=== PATIENT | female | born 1980 | race Caucasian/White ===

== ENCOUNTER 2019-05-02 18:10 | Emergency (ER) | payer SELFPAY ==
[~2019-05-02] VITALS: Ht 165.1 cm; Wt 56.7 kg
[2019-05-02] MEDS ORDERED: IV LR 1000 ML 1,000 ML IV ONE (18:30)
[2019-05-02] MEDS ORDERED: MVI-12 10ML IV ONE ×2 (18:30→18:34)
[2019-05-02] MEDS ORDERED: Thiamine 100 MG in IV D5W 50 ML IV SCH (18:30)
[2019-05-02] MEDS ORDERED: Thiamine 100 MG/ML VIAL ONE (18:33)
[2019-05-02 18:43] LABS: BASOPHILS % (AUTO) 0.4 % (0.0-2.0); HEMATOCRIT 33 % (33-45); HEMOGLOBIN 10.8 g/dL (11.5-14.8); LYMPHOCYTES # (AUTO) 2.3 /CMM (0.8-4.8); LYMPHOCYTES % (AUTO) 37.2 % (20.0-44.0); MEAN CORPUSCULAR HGB CONC 33 g/dl (31.0-36.0); MEAN CORPUSCULAR VOLUME 88 fL (82-100); MONOCYTES # (AUTO) 0.4 /CMM (0.1-1.30); MONOCYTES % (AUTO) 6.4 % (2.0-12.0); NEUTROPHILS # (AUTO) 3.3 /CMM (1.8-8.9); PLATELET COUNT (AUTO) 333 /CMM (150-450); RED BLOOD CELL COUNT(AUTO) 3.71 MIL/uL (4.0-5.2); WHITE BLOOD COUNT (AUTO) 6.2 K/uL (4.3-11.0)
[2019-05-02 18:51] LABS: CALCIUM, SERUM 8.3 mg/dL (8.5-10.1); CARBON DIOXIDE 29 mmol/L (21-32); CHLORIDE 107 mmol/L (98-107); CREATININE 0.9 mg/dL (0.6-1.3); GLUCOSE 87 mg/dL (74-106); POTASSIUM 3.8 mmol/L (3.5-5.1); SODIUM SERUM 144 mmol/L (136-145); UREA NITROGEN, BLOOD 7 mg/dL (7-18)
[2019-05-02 18:56] LABS: ALANINE AMINOTRANSFERASE 19 U/L (12-78); ALBUMIN 3.4 g/dL (3.4-5.0); ALCOHOL, BLOOD < 3 mg/dL (0-0); ALKALINE PHOSPHATASE 60 U/L (46-116); ASPARTATE AMINOTRANSFERASE 16 U/L (15-37); BILIRUBIN,DIRECT 0.1 mg/dL (0.0-0.2); BILIRUBIN,TOTAL 0.5 mg/dL (0.2-1.0)
[2019-05-02] MEDS ORDERED: DIAZEPAM 10 MG TABLET ONE (19:13)
--- NOTE | 2019-05-02 19:16 | NUR ---
assumed care. pt resting quietly, no acute distress noted, resp even and unlabored. pt was re-evaluated by er md with orders received. will carry out orders.
[2019-05-02] MEDS ORDERED: DIAZEPAM 10 MG TABLET PO ONE (19:30)
--- NOTE | 2019-05-02 19:50 | NUR ---
IV removed. Catheter intact and site benign. Pressure and 4x4 applied to site. No bleeding noted. Patient discharged to home in stable condition. Written and verbal after care instructions given. Patient verbalizes understanding of instruction. ambulatory with a steady gait noted. pt aaox4 aleja cute distress noted, resp even and unlabored. pt denies pain or discomfort at this time. advice pt not to drive or operate any machienry due to pt was given valium. pt verbalize understanding. treatment recovery [facility] staff at bedside to take pt home.
[2019-05-02 19:53] VITALS: BP 96/59
== END 2019-05-02 19:54 | disposition home or self-care (01) ==
LOC: ER 18:13
DX: F10.239 Alcohol dependence with withdrawal, unspecified (principal); Y90.0 Blood alcohol level of less than 20 mg/100 ml
CPT/HCPCS: 36415; 80048; 80076; 80307; 85025; 96365; 99283; J3411 ×2; J7060; J7120 ×2; G0480; J7030

== ENCOUNTER 2019-05-07 21:10 | Emergency (ER) | payer OTHER ==
[~2019-05-07] VITALS: Ht 165.1 cm; Wt 56.7 kg
[2019-05-07] MEDS ORDERED: ONDANSETRON HCL/PF 4 MG/2 ML VIAL IVP ONE (22:00)
[2019-05-07] MEDS ORDERED: IV NS 0.9% 1,000 ML BAG IV ONE (22:00)
[2019-05-07] MEDS ORDERED: LORAZEPAM INJ 2 MG/ML VIAL IV ONE (22:00)
[2019-05-07] MEDS ORDERED: MORPHINE SULFATE INJ 2 MG/ML DISP.SYRIN IV ONE (22:00)
[2019-05-07 22:10] LABS: BASOPHILS % (AUTO) 0.4 % (0.0-2.0); EOSINOPHILS % (AUTO) 0.6 % (0.0-6.0); HEMATOCRIT 31 % (33-45); HEMOGLOBIN 10.4 g/dL (11.5-14.8); LYMPHOCYTES # (AUTO) 1.6 /CMM (0.8-4.8); LYMPHOCYTES % (AUTO) 20.1 % (20.0-44.0); MEAN CORPUSCULAR HGB CONC 33 g/dl (31.0-36.0); MEAN CORPUSCULAR VOLUME 87 fL (82-100); MONOCYTES # (AUTO) 0.6 /CMM (0.1-1.30); MONOCYTES % (AUTO) 7.4 % (2.0-12.0); NEUTROPHILS # (AUTO) 5.7 /CMM (1.8-8.9); NEUTROPHILS % (AUTO) 71.5 % (43.0-81.0); PLATELET COUNT (AUTO) 342 /CMM (150-450); RED BLOOD CELL COUNT(AUTO) 3.58 MIL/uL (4.0-5.2); WHITE BLOOD COUNT (AUTO) 7.9 K/uL (4.3-11.0)
[2019-05-07 22:18] LABS: CREATININE 0.9 mg/dL (0.6-1.3); POTASSIUM 3.6 mmol/L (3.5-5.1)
[2019-05-07 22:25] LABS: ALBUMIN 3.3 g/dL (3.4-5.0); BILIRUBIN,DIRECT 0.1 mg/dL (0.0-0.2); BILIRUBIN,TOTAL 0.2 mg/dL (0.2-1.0); TOTAL PROTEIN, SERUM 6.8 g/dL (6.4-8.2)
[2019-05-07] MEDS ORDERED: ONDANSETRON HCL/PF 4 MG/2 ML VIAL ONE (22:36)
[2019-05-07] MEDS ORDERED: MORPHINE SULFATE INJ 4 MG/ML DISP.SYRIN ONE (22:36)
[2019-05-07] MEDS ORDERED: LORAZEPAM INJ 2 MG/ML VIAL ONE (22:37)
--- NOTE | 2019-05-07 22:55 | NUR ---
PT BIBRA C/O NAUSEA/VOMITTING FROM ESOPHAGEAL DISEASE, SPITTING BLOOD. PT AAOX4, VSS. DENIES CP, SOB, DIZZINESS, WEAKNESS @ THIS TIME. SEEN & EVAL'D BY LEONEL GUAJARDO. MEDICATED ORDERED, PT ANGI WELL. WILL CONT TO MONITOR. FRIENDS @ BS.
[2019-05-08] MEDS ORDERED: MORPHINE SULFATE INJ 2 MG/ML DISP.SYRIN IM ONE
[2019-05-08] MEDS ORDERED: MORPHINE SULFATE INJ 4 MG/ML DISP.SYRIN ONE (00:01)
--- NOTE | 2019-05-08 00:33 | NUR ---
Patient discharged to home in stable condition. Written and verbal after care instructions given. Patient verbalizes understanding of instruction.IV removed. Catheter intact and site benign. Pressure and 4x4 applied to site. No bleeding noted.Pt ambulatory with a steady gait
[2019-05-08 00:37] VITALS: BP 118/76
== END 2019-05-08 00:43 | disposition home or self-care (01) ==
LOC: ER 21:20
DX: J18.9 Pneumonia, unspecified organism (principal); D64.9 Anemia, unspecified
CPT/HCPCS: 36415; 71045; 80048; 80076; 83690; 84703; 85025; 85730; 96361; 96374; 96375; 96376; 99284; J2060; J2270 ×2; J2405; J7030

== ENCOUNTER 2019-07-24 09:27 | Emergency (ER) | payer OTHER ==
[~2019-07-24] VITALS: Ht 165.1 cm; Wt 56.7 kg
--- NOTE | 2019-07-24 10:15 | NUR ---
PT CAME TO THE ED C/O WORSENING HEADACHE, + N/V X 2 DAYS AFTER TV FELL ON HER HEAD. PT AAOX4, VSS, BREATHING EVEN AND UNLABORED W/ NO ACUTE DISTRESS NOTED. PT CONNECTED TO THE MONITOR.
[2019-07-24] MEDS ORDERED: ONDANSETRON HCL/PF 4 MG/2 ML VIAL ONE (10:47)
[2019-07-24] MEDS ORDERED: KETOROLAC TROMETHAMINE INJ 30 MG/ML VIAL ONE (10:47)
[2019-07-24] MEDS ORDERED: diphenhydrAMINE HCL 50 MG/ML VIAL ONE (10:47)
[2019-07-24] MEDS ORDERED: diphenhydrAMINE HCL 50 MG/ML VIAL IV ONE (11:00)
[2019-07-24] MEDS ORDERED: KETOROLAC TROMETHAMINE INJ 30 MG/ML VIAL IV ONE (11:00)
[2019-07-24] MEDS ORDERED: ONDANSETRON HCL/PF 4 MG/2 ML VIAL IVP ONE (11:00)
--- NOTE | 2019-07-24 11:00 | NUR ---
NOTIFIED FOR TORADOL SHOT. PER DR LIANG, NO NEED FOR TEST.
[2019-07-24] MEDS ORDERED: HYDROCODONE/APAP 10/325MG 1 EA TABLET ONE (12:22)
[2019-07-24] MEDS ORDERED: HYDROCODONE/APAP 10/325MG 1 EA TABLET PO ONE (12:30)
[2019-07-24 13:26] VITALS: BP 140/94
--- NOTE | 2019-07-24 13:26 | NUR ---
Patient discharged to home in stable condition. Written and verbal after care instructions given. Patient verbalizes understanding of instruction.IV removed. Catheter intact and site benign. Pressure and 4x4 applied to site. No bleeding noted.
== END 2019-07-24 13:27 | disposition home or self-care (01) ==
LOC: ER 09:28
DX: S06.0X0A Concussion without loss of consciousness, initial encounter (principal); S09.8XXA Other specified injuries of head, initial encounter; R51 Headache; K22.6 Gastro-esophageal laceration-hemorrhage syndrome; F10.10 Alcohol abuse, uncomplicated; Y90.9 Presence of alcohol in blood, level not specified; W18.30XA Fall on same level, unspecified, initial encounter; Y93.89 Activity, other specified; Y92.89 Other specified places as the place of occurrence of the external cause; Y99.8 Other external cause status
CPT/HCPCS: 70450; 96374; 96375; 99284; J1200; J1885; J2405